=== PATIENT | male | born 1990 | race American Indian/Alaskan Native ===

== ENCOUNTER 2021-05-10 21:30 | Emergency (ER) | payer SELFPAY ==
[2021-05-10] MEDS ORDERED: SODIUM CHLORIDE 0.9% 1000 ML 1,000 ML IV ONE ×2 (21:39→23:18)
[2021-05-10] MEDS ORDERED: CHARCOAL/SORBITOL SOLUTION 25 GM/120 ML PO ONE (21:39)
[2021-05-10] MEDS ORDERED: ONDANSETRON 4 MG/2 ML INJ IV ONE (21:41)
--- NOTE | 2021-05-10 21:42 | Emergency Department Report ---
ED Psych HPI - General Stated Complaint: OD/SI Time Seen by Provider: 05/10/21 21:39 - History of Present Illness Initial Comments: Patient presents by EMS secondary to overdose. He had an altercation with his . They were arguing. He wanted to kill himself. He tried to take Tylenol. She took the bottle away from him. He promptly went upstairs and grabbed a bottle of Zoloft and ingested Zoloft. He took approximately 20 tablets of Zoloft. EMS states that these were completely gone when they arrived. This happened less than an hour prior to arrival. There has been no vomiting. Patient has become somewhat sleepy according to EMS. Patient admits that he was trying to kill himself. He states that he is sleepy currently. He denies taking any other medication. He states that he does not want to kill himself now. He cannot really delineate why his mind has been changed. He is not homicidal. He is not hearing voices telling him to harm himself. He states he is never tried to kill himself before. - Related Data Allergies Allergy/AdvReac Type Severity Reaction Status Date / Time No Known Allergies Allergy Verified 05/10/21 22:05 ED Review of Systems ROS: Stated complaint: OD/SI Other details as noted in HPI Comment: All other systems reviewed and negative Constitutional: denies: fever Eyes: denies: vision change ENT: denies: throat pain Respiratory: denies: cough Cardiovascular: denies: chest pain Endocrine: denies: unexplained weight loss Gastrointestinal: denies: abdominal pain Genitourinary: denies: dysuria Musculoskeletal: denies: back pain Skin: denies: rash Neurological: denies: headache Psychiatric: as per HPI Hematological/Lymphatic: denies: easy bruising ED Past Medical Hx - Past Medical History Previous Medical History?: Yes Hx Psychiatric Treatment: Yes (Depression) - Surgical History Past Surgical History?: No - Family History Family history: no significant - Social History Substance Use Type: None ED Physical Exam - General Limitations: No Limitations, Other (Pulse ox noted and normal) General appearance: alert, in no apparent distress - Head Head exam: Present: atraumatic, normocephalic, normal inspection - Eye Eye exam: Present: normal appearance, EOMI. Absent: scleral icterus - ENT ENT exam: Present: normal exam, normal orophraynx - Neck Neck exam: Present: normal inspection. Absent: meningismus - Respiratory Respiratory exam: Present: normal lung sounds bilaterally. Absent: respiratory distress - Cardiovascular Cardiovascular Exam: Present: regular rate, normal rhythm - GI/Abdominal GI/Abdominal exam: Present: soft. Absent: tenderness - Extremities Exam Extremities exam: Present: normal capillary refill. Absent: pedal edema - Back Exam Back exam: Absent: CVA tenderness (R), CVA tenderness (L) - Neurological Exam Neurological exam: Present: oriented X3, CN II-XII intact, normal gait. Absent: alert, motor sensory deficit - Psychiatric Psychiatric exam: Present: flat affect - Skin Skin exam: Present: warm, dry ED Course Vital Signs 05/10/21 05/10/21 05/10/21 21:34 22:06 22:16 Temperature 98.6 F Pulse Rate 85 91 H 92 H Respiratory 17 16 15 Rate Blood Pressure Blood Pressure 141/94 [Right] O2 Sat by Pulse 98 100 100 Oximetry 05/10/21 05/10/21 05/10/21 22:30 22:45 23:00 Temperature Pulse Rate 91 H 105 H 104 H Respiratory 13 16 15 Rate Blood Pressure 147/97 136/83 Blood Pressure [Right] O2 Sat by Pulse 100 100 Oximetry 05/10/21 05/10/21 05/10/21 23:20 23:30 23:44 Temperature Pulse Rate 111 H Respiratory 15 Rate Blood Pressure 147/97 130/81 Blood Pressure [Right] O2 Sat by Pulse 100 98 Oximetry 05/11/21 05/11/21 05/11/21 00:08 00:20 01:00 Temperature Pulse Rate 109 H 103 H 101 H Respiratory 15 17 12 Rate Blood Pressure 127/86 129/91 139/85 Blood Pressure [Right] O2 Sat by Pulse 98 97 Oximetry 05/11/21 05/11/21 05/11/21 01:20 01:40 02:00 Temperature Pulse Rate 106 H 95 H 96 H Respiratory 16 16 31 H Rate Blood Pressure 139/85 133/86 141/88 Blood Pressure [Right] O2 Sat by Pulse 99 99 99 Oximetry 05/11/21 05/11/21 05/11/21 02:20 02:40 03:00 Temperature Pulse Rate 93 H 90 85 Respiratory 15 13 14 Rate Blood Pressure 133/84 140/80 119/76 Blood Pressure [Right] O2 Sat by Pulse 97 99 Oximetry 05/11/21 05/11/21 05/11/21 03:20 03:40 04:00 Temperature Pulse Rate 77 83 103 H Respiratory 17 14 18 Rate Blood Pressure 117/75 119/76 128/70 Blood Pressure [Right] O2 Sat by Pulse 97 98 100 Oximetry 05/11/21 04:20 Temperature Pulse Rate 86 Respiratory 18 Rate Blood Pressure 125/85 Blood Pressure [Right] O2 Sat by Pulse 99 Oximetry - Reevaluation(s) Reevaluation #1: 05/10/21 21:42 EMS was met. Charcoal was ordered with sorbitol as the patient had an ingestion and under 1 hour. IV labs ordered. Old records reviewed. A 1013 was placed. We will admit the patient to observation status in the emergency department. He will require ongoing observation until he can be medically cleared. Once medically cleared, he will potentially need psychiatric admission. Reevaluation #2: 05/10/21 23:18 Labs have been reviewed. Urine drug screen is pending. Insulin was ordered based on hypoglycemia and the fact that [facility] will not accept this patient given his glucose. Patient did consent verbally and in written form for HIV testing as there was a needlestick with a staff member. Patient will undergo ongoing hydration. We will continue medical observation in the emergency department until we can arrange an appropriate and safe disposition. As he has not been seen by psychiatric services, that may be an ongoing issue. He may require psychiatric admission. At this time, I do not believe he will require medical admission however. He potentially could be discharged home as he does verbalize understanding and seems appropriately remorseful for his gesture. He is not actively suicidal at this time. Reevaluation #3: 05/11/21 01:18 We will continue to observe the patient. He has been medically cleared, but we are awaiting psychiatric evaluation. Until we can arrange a safe disposition, he will require observation in the emergency department. 05/11/21 03:10 Patient continues to rest comfortably. We will continue to observe in the emergency department. IV fluids are infusing. Urine is still pending as the patient has not voided. We can arrange a safe disposition. We have to have the patient seen by psychiatric services until we can decide upon an appropriate disposition. Based on that, observation in the ED is still indicated. 05/11/21 05:03 Patient continues to rest. We are still awaiting urine results. 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 I believe medically he is cleared at this time. He still requires psychiatric evaluation prior to disposition. He may need admission. He certainly could potentially go home as well. As we do not have a clear disposition, we will continue to observe the patient in the emergency department. Reevaluation #4: 05/11/21 05:53 Patient is resting comfortably. He has been medically cleared. We are awaiting psychiatric evaluation and disposition. He does require ongoing observation in the emergency department. Once psychiatric services sees the patient, we can determine disposition. Observation status with and at that time. He would either be admitted or discharged. Patient does not have evidence of any metabolic derangement that would require admission. Care was signed out to the next physician. ED Medical Decision Making - Lab Data Result diagrams: 05/10/21 21:50 05/10/21 21:50 Rhythm strip: Normal sinus rhythm without ectopy. Monitor observe 10 s. - EKG Data -: EKG Interpreted by Me - EKG Data 05/10/21 22:20 2210-EKG shows a normal sinus rhythm at 96. Intervals are normal including a QRS of 74 and a QT corrected of 438. Patient has no ST elevation to suggest STEMI. There is no ST depression suggestive of ischemia but there is no ectopy. Patient has diffuse T wave flattening in the limb leads as well as in V3 through V6. There is no old EKG for comparison. - Medical Decision Making Patient presents an overdose. He was suicidal at the time but states he is not suicidal at this time. His overdose was nonlethal. He attempted Tylenol but then attempted Zoloft. He was successful in ingesting Zoloft. He has been given charcoal. He does not appear to have any overt sedation. There is no evidence of QT prolongation. There is no dysrhythmia. He is not homicidal. There is no evidence of acute psychosis or delusion. He is not responding to extraneous stimuli. Patient will need to undergo psychiatric evaluation prior to disposition. We have observed him in the emergency department. Has been medically cleared, but we cannot cleared from a psychiatric perspective. Until we can arrange a safe and appropriate disposition, he will be observed in the emergency department and managed as needed. Critical Care Time: No Critical care attestation.: If time is entered above; I have spent that time in minutes in the direct care of this critically ill patient, excluding procedure time. 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
[2021-05-10 22:08] LABS: Basophils % (Auto) 0.5 % (0.0-1.8); Eosinophils # (Auto) 0.3 K/mm3 (0.0-0.4); Eosinophils % (Auto) 4.2 % (0.0-4.3); Lymphocytes # (Auto) 2.7 K/mm3 (1.2-5.4); Lymphocytes % (Auto) 33.8 % (13.4-35.0); Mean Corpuscular HGB Conc 31 % (32-34); Mean Corpuscular Volume 77 fl (84-94); Monocytes # (Auto) 0.7 K/mm3 (0.0-0.8); Monocytes % (Auto) 8.3 % (0.0-7.3); Platelet Count 371 K/mm3 (140-440); Red Blood Count 5.66 M/mm3 (3.65-5.03); Red Cell Distribution Width 13.7 % (13.2-15.2)
[2021-05-10 22:17] LABS: Hematocrit 43.5 % (35.5-45.6); Hemoglobin 13.5 gm/dl (11.8-15.2)
[2021-05-10 22:23] LABS: Alanine Aminotransferase 16 units/L (7-56); Albumin 4.5 g/dL (3.9-5); BUN/Creatinine Ratio 18; Blood Urea Nitrogen 16 mg/dL (9-20); Calcium 10.3 mg/dL (8.4-10.2); Hemolysis Index 14
[2021-05-10] MEDS ORDERED: INSULIN REGULAR, HUMAN 100 UNITS/1 ML IV ONE (23:18)
[2021-05-11] MEDS ORDERED: DIPHENOXYLATE/ATROPINE TAB PO ONE (00:27)
[2021-05-11] MEDS ORDERED: METOCLOPRAMIDE 10 MG/2 ML INJ ONE (00:48)
[2021-05-11] MEDS ORDERED: METOCLOPRAMIDE 10 MG/2 ML INJ IV ONE (00:57)
[2021-05-11 04:55] LABS: Amphetamine Screen,Urine PRESUMPTIVE NEGATIVE; Benzodiazepines Screen,Urine PRESUMPTIVE NEGATIVE; Cannabinoid Screen,Urine PRESUMPTIVE NEGATIVE; Cocaine Screen,Urine PRESUMPTIVE NEGATIVE; Methadone Screen,Urine PRESUMPTIVE NEGATIVE; Opiate Screen,Urine PRESUMPTIVE NEGATIVE
--- NOTE | 2021-05-11 11:42 | Consultation ---
History of Present Illness - Reason for Consult Consult date: 05/11/21 Reason for consult: Suicide attempt - History of Present Psychiatric Illness The patient was seen today. He is calm and cooperative. He doesn't appear to be upfront. He makes poor eye contact. While it's documented that the patient took a bottle of zoloft, he reports only taking one. He says "I took one of the pills because me and my got into it." He says "I was just mad at my ." When asking the patient does he always have impulsive behaviors like that, he states this was the first time. He denies SI/HI at present, but states he was trying to kill himself at that time because he says he "wanted to get to her." He says he doesn't sleep that well. The patient denies hallucinations of any kind. He also denies a psych history. PAST PSYCHIATRIC HISTORY: Diagnoses: Denies Suicide attempts or Self-harm behavior: Denies Prior psychiatric hospitalizations: Denies Substance Abuse history: Denies Previous psychiatric medications tried: Denies Outpatient treatment: Denies PAST MEDICAL HISTORY: None reported or document Family Psychiatric History: None reported or documented SOCIAL HISTORY Marital Status: Living Arrangements: Lives spouse Employment Status: Employed Access to guns/weapons: Denies Education: History of Abuse: Denies Legal History: Denies REVIEW OF SYSTEMS Constitutional: Negative for weight loss ENT: Negative for stridor Respiratory: Negative for cough or hemoptysis All other systems reviewed and are negative MENTAL STATUS EXAMINATION General Appearance and Behavior: Age appropriate, good hygiene, wearing appropriate clothes. calm and cooperative Cooperation: cooperative Psychomotor Behavior: Psychomotor normal Mood: Depressed Affect and affective range: congruent with stated mood Thought Process: goal directed Thought Content: Not suicidal Speech: Normal volume, Regular rate and rhythm, Suicidal Ideation: Denies Homicidal Ideation: Denies Hallucinations: Denies Delusions: none elicited Impulse Control: Unimpaired Insight and Judgment: Limited Memory: limited Attention: Attentive Orientation: alert and oriented Assessment and Plan (1) Intentional Overdose Treatment Plan 1013 Doxepin 10mg po qhs Sitter: per primary Medical: per primary Disposition: recommend acute psychiatric inpatient treatment Will follow. Thanks for this consult. Case staffed with Dr. Dean Medications and Allergies Allergies Allergy/AdvReac Type Severity Reaction Status Date / Time No Known Allergies Allergy Verified 05/10/21 22:05 Mental Status Exam - Vital signs Last Vital Signs Temp 97.9 F 05/11/21 07:51 Pulse 86 05/11/21 07:51 Resp 20 05/11/21 07:51 BP 123/83 05/11/21 07:51 Pulse Ox 97 05/11/21 07:51 Results Result Diagrams: 05/10/21 21:50 05/10/21 21:50 Abnormal lab results 05/10/21 05/10/21 05/10/21 Range/Units 21:50 21:50 21:50 RBC 5.66 H (3.65-5.03) M/mm3 MCV 77 L (84-94) fl MCH 24 L (28-32) pg MCHC 31 L (32-34) % [place] % (Auto) 8.3 H (0.0-7.3) % Chloride (98-107) mmol/L Glucose (75-100) mg/dL Calcium (8.4-10.2) mg/dL Total Protein (6.3-8.2) g/dL Salicylates < 0.3 L (2.8-20.0) mg/dL Acetaminophen 5.0 L (10.0-30.0) ug/mL 05/10/21 Range/Units 21:50 RBC (3.65-5.03) M/mm3 MCV (84-94) fl MCH (28-32) pg MCHC (32-34) % [place] % (Auto) (0.0-7.3) % Chloride 95.5 L (98-107) mmol/L Glucose 407 H (75-100) mg/dL Calcium 10.3 H (8.4-10.2) mg/dL Total Protein 8.9 H (6.3-8.2) g/dL Salicylates (2.8-20.0) mg/dL Acetaminophen (10.0-30.0) ug/mL All other labs normal.
--- NOTE | 2021-05-11 12:01 | Event Note ---
Date: 05/11/21 No events overnight. Still with the recommendation of our mental health assessment team but the patient remain on 1013 because of suicidal thoughts. Patient is medically cleared. Psychiatric Consult Note Patient Name: MICHEL LYLES Date of : 89 Patient Status: Emergency Emergency Provider: MADDY STRINGER Date: 05/11/21 11:36 Initialization Date: 05/11/21 11:36 History of Present Illness - Reason for Consult Consult date: 05/11/21 Reason for consult: Suicide attempt - History of Present Psychiatric Illness The patient was seen today. He is calm and cooperative. He doesn't appear to be upfront. He makes poor eye contact. While it's documented that the patient took a bottle of zoloft, he reports only taking one. He says "I took one of the pills because me and my got into it." He says "I was just mad at my ." When asking the patient does he always have impulsive behaviors like that, he states this was the first time. He denies SI/HI at present, but states he was trying to kill himself at that time because he says he "wanted to get to her." He says he doesn't sleep that well. The patient denies hallucinations of any kind. He also denies a psych history. PAST PSYCHIATRIC HISTORY: Diagnoses: Denies Suicide attempts or Self-harm behavior: Denies Prior psychiatric hospitalizations: Denies Substance Abuse history: Denies Previous psychiatric medications tried: Denies Outpatient treatment: Denies PAST MEDICAL HISTORY: None reported or document Family Psychiatric History: None reported or documented SOCIAL HISTORY Marital Status: Living Arrangements: Lives spouse Employment Status: Employed Access to guns/weapons: Denies Education: History of Abuse: Denies Legal History: Denies REVIEW OF SYSTEMS Constitutional: Negative for weight loss ENT: Negative for stridor Respiratory: Negative for cough or hemoptysis All other systems reviewed and are negative MENTAL STATUS EXAMINATION General Appearance and Behavior: Age appropriate, good hygiene, wearing appropriate clothes. calm and cooperative Cooperation: cooperative Psychomotor Behavior: Psychomotor normal Mood: Depressed Affect and affective range: congruent with stated mood Thought Process: goal directed Thought Content: Not suicidal Speech: Normal volume, Regular rate and rhythm, Suicidal Ideation: Denies Homicidal Ideation: Denies Hallucinations: Denies Delusions: none elicited Impulse Control: Unimpaired Insight and Judgment: Limited Memory: limited Attention: Attentive Orientation: alert and oriented Assessment and Plan (1) Intentional Overdose Treatment Plan 1013 Doxepin 10mg po qhs Sitter: per primary Medical: per primary Disposition: recommend acute psychiatric inpatient treatment Will follow. Thanks for this consult. Case staffed with Dr. Dean
[2021-05-11 12:22] LABS: Bilirubin,Urine NEG (Negative); Blood,Urine NEG (Negative); Color,Urine Straw (Yellow); Mucus,Urine FEW /HPF; Protein,Urine <15 mg/dL mg/dL (Negative); Urobilinogen,Urine < 2.0 mg/dL (<2.0)
[2021-05-11 12:28] LABS: Amphetamine Screen,Urine Negative; Benzodiazepines Screen,Urine Negative; Cannabinoid Screen,Urine Negative; Cocaine Screen,Urine Negative; Methadone Screen,Urine Negative; Opiate Screen,Urine Negative
[2021-05-11] MEDS ORDERED: DOXEPIN 10 MG CAP PO SCH (22:00)
[2021-05-12 08:26] VITALS: BP 128/83
--- NOTE | 2021-05-12 11:24 | Progress Note ---
Subjective - Reason for Consult Consult date: 05/12/21 Reason for consult: SI - Chief Complaint Chief complaint: The patient was seen today. He is calm, cooperative and polite. The patient says he realized what he did was stupid. He says "I won't ever do that again cause I do not want to be in no place like this. This is not for me." He denies SI/HI, or any fear of endangerment. He also denies hallucinations of any kind. REVIEW OF SYSTEMS Constitutional: Negative for weight loss ENT: Negative for stridor Respiratory: Negative for cough or hemoptysis All other systems reviewed and are negative MENTAL STATUS EXAMINATION General Appearance and Behavior: Age appropriate, good hygiene, wearing appropriate clothes. calm and cooperative Cooperation: cooperative Psychomotor Behavior: Psychomotor normal Mood: better Affect and affective range: congruent with stated mood Thought Process: goal directed Thought Content: Not suicidal Speech: Normal volume, Regular rate and rhythm, Suicidal Ideation: Denies Homicidal Ideation: Denies Hallucinations: Denies Delusions: none elicited Impulse Control: Unimpaired Insight and Judgment: Limited Memory: limited Attention: Attentive Orientation: alert and oriented Assessment and Plan (1) Intentional Overdose Treatment Plan d/c 1013 Doxepin 10mg po qhs Sitter: per primary Medical: per primary Disposition: Do not recommend acute psychiatric inpatient treatment. The patient understands to seek immediate assistance if SI/HI or any fear of endangerment arise The environmental property assessor to further discuss safety plan, and give all necessary outpatient resources The patient to follow up with outpatient psych in 7 to 14 days upon discharge Will sign off. Thanks for this consult. Case staffed with Dr. Dean Mental Status Exam - Vital signs Last Vital Signs Temp 98.0 F 05/12/21 08:25 Pulse 90 05/12/21 08:25 Resp 20 05/12/21 08:25 BP 128/83 05/12/21 08:25 Pulse Ox 98 05/12/21 08:25
--- NOTE | 2021-05-14 10:06 | Electrocardiograph Report ---
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
== END 2021-05-12 13:14 | disposition still patient (30) ==
LOC: ED 21:30 → EEVIPCON 21:30 → ED 05-12 13:14
DX: T39.1X2A Poisoning by 4-Aminophenol derivatives, intentional self-harm, initial encounter (principal); E11.65 Type 2 diabetes mellitus with hyperglycemia; F32.9 Major depressive disorder, single episode, unspecified; Z20.822 Contact with and (suspected) exposure to COVID-19; Y92.89 Other specified places as the place of occurrence of the external cause
CPT/HCPCS: 36415; 80053; 80307; 81001; 84443; 85025; 87086; 93005; 96361; 96374; 96375; 99284; J2405; J2765; J7030; U0003; 80320; G0480; J1815